=== PATIENT | female | born 1975 | race Caucasian/White ===

== ENCOUNTER 2017-03-05 17:02 | Emergency (ER) | payer OTHER ==
[~2017-03-05] VITALS: Ht 162.6 cm; Wt 68.2 kg
[2017-03-05 17:05] VITALS: BP 138/78; PULSE 111; RESP 26; O2SAT 99
[2017-03-05] MEDS ORDERED: Albuterol-Ipratropium 3 mL Inhalation Solution NEB ONE (17:10)
[2017-03-05 17:19] VITALS: PULSE 104; RESP 20; O2SAT 100
--- NOTE | 2017-03-05 18:22 | DRSVH ---
PROCEDURE: X-RAY CHEST, TWO VIEWS ([id number]) INDICATIONS: diff breathing, asthma TECHNIQUE: 2 views of the chest were acquired. COMPARISON: None. FINDINGS: Surgical changes and devices: None. Lungs and pleura: No pleural effusions or pneumothorax. Lungs are clear. Mediastinum: Mediastinal contours are normal. Heart size is normal. Bones and chest wall: No suspicious bony abnormalities. Soft tissues appear unremarkable. IMPRESSION: No acute disease Dictated by: Domingo Mast M.D. on 03/05/2017 at 18:19 Approved by: Domingo Mast M.D. on 03/05/2017 at 18:20
--- NOTE | 2017-03-05 19:01 | ED.REPORT ---
HPI-Dyspnea / Wheezing Date of Service Mar 05, 2017 ED Provider: Doc,Ed MD History of Present Illness: started this am. last on steroids in july. primary care is [facility] in [place]. uses albuterol inhaler and nebulizer albuterol used 3 times today. have not tried singulair. 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/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 Ambulatory Status Independent Review of Systems Basic Review of Systems Eyes: Vision NL, No discharge Hematologic: No bleeding, No bruising Psychiatric: Normal thought content Physical Exam Initial Vital Signs Vital Signs (First) Date Time Temp Pulse Resp B/P Pulse Ox O2 Delivery O2 Flow Rate FiO2 03/05/17 17:05 36.6 111 26 138/78 99 Room Air Initial VS: Reviewed, Vital signs normal Head / Eyes: Atraumatic, Normocephalic, PERRL ENT: Mucous membranes moist, Conjunctiva normal, No scleral icterus Abdomen / GI: Soft, Non-tender, No guarding, No rebound, No distention Back: No CVA tenderness Lymphatic: No lymphadenopathy Extremities: Vascular intact, Neuro intact, No swelling, No tenderness Skin: Warm, Dry, No cyanosis Neurologic: Alert, Oriented, Nonfocal Psychiatric: Mood/affect normal, Behavior normal, Normal thought content General/Constitutional: Awake, Alert, No acute distress, Well appearing, Well developed, Well hydrated, Well nourished, Cooperative Neck: Atraumatic, Supple, No meningismus, Full range of motion, No adenopathy Respiratory / Chest: Atraumatic Wheezing / Retractions: Positive: Wheeze insp/exp diffuse, Wheezing moderate Cardiovascular: Heart rate NL, Regular rhythm, Heart sounds NL Re-Eval/Medical Decision Med Decision/Clinical Course 41 year old female presents for asthma attack. Started this am. Patient with good response to nebulizer. Reported improvement, provided prednisone 40 mg daily taper. No sign of anxiety or PE. Discharge & Departure Impression: Primary Impression: Asthma Asthma severity: unspecified severity Asthma complication type: with acute exacerbation Qualified Code: J45.901 - Unspecified asthma with (acute) exacerbation Disposition: Home Patient Instructions: Moderate and Severe Persistent Asthma (ED) Additional Instructions: Need to add duo neb medication to your nebulizer to see if that helps. Continue with prednisone 40 mg daily for 5 days then 20 mg daily for 5 days then 10 mg daily for 5 days. Return if you are not showing continued improvement. Follow with primary care next week. Referrals: Robel Mckeon MD (PCP) EDSupervising Provider for APC: Nas Gavin MD copies to: Robel Mckeon MD, Sue ARNP Mar 05, 2017 19:01
[2017-03-05] MEDS ORDERED: predniSONE 20 mg Tablet PO ONE (19:15)
[2017-03-05 20:11] VITALS: BP 120/82; PULSE 95; RESP 17; O2SAT 98
== END 2017-03-05 19:59 | disposition home or self-care (01) ==
LOC: SED 17:02
DX: J45.901 Unspecified asthma with (acute) exacerbation (principal); F17.200 Nicotine dependence, unspecified, uncomplicated
CPT/HCPCS: 71020; 94664; 99284; J7620